=== PATIENT | male | born 1990 | race Caucasian/White ===

== ENCOUNTER 2018-08-09 15:54 | Emergency (ER) | payer SELFPAY ==
[~2018-08-09] VITALS: Ht 182.9 cm; Wt 95.0 kg
[2018-08-09 15:56] VITALS: BP 132/85
--- NOTE | 2018-08-09 16:10 | NUR ---
PERFORMED EKG AND GAVE IT TO ROBERT DYSON. PT AMBULATED TO LOBBY AT THIS TIME. VSS.
--- NOTE | 2018-08-09 16:21 | NUR ---
PT TAKEN TO X-RAY AT THIS TIME.
--- NOTE | 2018-08-09 16:30 | NUR ---
PT AMBULATED TO BED 6
--- NOTE | 2018-08-09 16:33 | NUR ---
BIB SELF. AAO X4 C/O COLD X1 WEEK. PT STATES HAVING SOB STARTING YESTERDAY ALONG WITH SHARP MIDSTERNAL CP AT 10/10 AT 0300 THISMORNING. PT REPORTS SOB AT THIS TIME, RR SYMMETRICAL, NON-LABORED, AND BREATH SOUNDS CLEAR. O2 SATURATION AT 96% ROOM AIR. PT DENIES DIZZINESS. PERRLA BRISK 3 MM. FULL CLEAR SPEECH. FACIAL SYMMETRY. EQUAL EBONY STRENGTH TO UPPER AND LOWER EXTREMITIES. STEADY GAIT. PT PLACED ON FULL BRANCH LOGISTICS SUPERVISOR. HOB UP. BED SIDE RAILS UP X1.
[2018-08-09 16:44] LABS: BASOPHILS # (AUTO) 0.1 K/uL (0.00-0.22); BASOPHILS % (AUTO) 0.8 % (0.0-2.0); EOSINOPHILS # (AUTO) 0.3 K/uL (0-0.4); EOSINOPHILS % (AUTO) 3.5 % (0.0-4.0); LYMPHOCYTES # (AUTO) 1.9 K/uL (2.0-11.5); LYMPHOCYTES % (AUTO) 22.5 % (20.5-51.1); MEAN CORPUSCULAR HEMOGLOBIN 30 pg (27-31); MEAN CORPUSCULAR HGB CONC 35 g/dL (33-37); MEAN CORPUSCULAR VOLUME 87.1 fL (80-94); MONOCYTES # (AUTO) 0.6 K/uL (0.8-1.0); MONOCYTES % (AUTO) 6.8 % (1.7-9.3); NEUTROPHILS # (AUTO) 5.7 K/uL (1.8-7.7); NEUTROPHILS % (AUTO) 66.4 % (42.2-75.2); PLATELET COUNT (AUTO) 252 K/uL (140-450); RED BLOOD CELL COUNT(AUTO) 5.29 MIL/uL (4.20-6.10); RED CELL DISTRIBUTION WIDTH 13.3 % (11.6-13.7); WHITE BLOOD COUNT (AUTO) 8.7 K/uL (4.8-10.8)
[2018-08-09 16:53] LABS: ANION GAP 13.3 (8-16); CARBON DIOXIDE 25.4 mmol/L (21-32); CREATININE 1.1 mg/dL (0.7-1.3); POTASSIUM 3.7 mmol/L (3.5-5.1)
[2018-08-09 16:58] LABS: ALBUMIN 3.8 g/dL (3.4-5.0); TOTAL BILIRUBIN 1.8 mg/dL (0.0-1.0)
[2018-08-09 17:54] VITALS: BP 138/82
--- NOTE | 2018-08-09 17:54 | NUR ---
Patient discharged with v/s stable. Written and verbal after care instructions given and explained. Patient alert, oriented and verbalized understanding of instructions. Ambulatory with steady gait. All questions addressed prior to discharge. ID band removed. Patient advised to follow up with PMD. Rx of IBUPROFEN 600MG AND NORCO 5MG-325MG given. Patient educated on indication of medication including possible reaction and side effects. Opportunity to ask questions provided and answered.
== END 2018-08-09 17:54 | disposition home or self-care (01) ==
LOC: MED 15:54
DX: I20.9 Angina pectoris, unspecified (principal); F17.200 Nicotine dependence, unspecified, uncomplicated
CPT/HCPCS: 36415; 71046; 80053; 84484; 85025; 93005; 99284

== ENCOUNTER 2019-12-31 01:20 | Emergency (ER) | payer OTHER ==
[~2019-12-31] VITALS: Ht 185.4 cm; Wt 116.1 kg
[2019-12-31 01:29] VITALS: BP 123/66
--- NOTE | 2019-12-31 01:33 | NUR ---
PT TAKEN TO BED 7
--- NOTE | 2019-12-31 01:35 | NUR ---
29 YO MALE BIB SELF FOR RLQ PAIN; DULLNESS/ACHINESS 11/23. PT DENIES N/V/D, FEVER AND CHILLS. DENIES CP/SOB. ACTIVE BS X4 QUADRANTS, LAST BM YESTERDAY. LUNGS CLEAR EVEN UNLABORED. PT VOIDING CLEAR YELLOW URINE, DENIES DYSURIA, FREQUENCY URGENCY. SKIN INTACT. GURNEY LOCKED IN LOWEST POSITION. HX: GALLSTONES RX: TYLENOL X 1 HOUR AGO AX: DESMONDA
--- NOTE | 2019-12-31 02:04 | NUR ---
Dr. Mead examining patient.
[2019-12-31] MEDS ORDERED: HYDROcodone/APAP 5/325 MG 1 TAB TAB PO ONE (02:10)
[2019-12-31] MEDS ORDERED: KETOROLAC 30 MG/ML VIAL IM ONE (02:10)
[2019-12-31] MEDS ORDERED: ONDANSETRON 4 MG ODT PO ONE (02:10)
--- NOTE | 2019-12-31 02:16 | NUR ---
LAB AT BEDSIDE.
[2019-12-31 02:24] LABS: BASOPHILS # (AUTO) 0.1 K/uL (0.00-0.22); BASOPHILS % (AUTO) 0.6 % (0.0-2.0); EOSINOPHILS % (AUTO) 0.4 % (0.0-4.0); HEMATOCRIT 43.7 % (36-52); HEMOGLOBIN 14.9 g/dL (12.0-18.0); LYMPHOCYTES # (AUTO) 1.2 K/uL (2.0-11.5); LYMPHOCYTES % (AUTO) 11.3 % (20.5-51.1); MEAN CORPUSCULAR HEMOGLOBIN 31 pg (27-31); MEAN CORPUSCULAR HGB CONC 34 g/dL (33-37); MEAN CORPUSCULAR VOLUME 91.3 fL (80-94); MONOCYTES # (AUTO) 0.4 K/uL (0.8-1.0); MONOCYTES % (AUTO) 4.1 % (1.7-9.3); NEUTROPHILS # (AUTO) 8.5 K/uL (1.8-7.7); NEUTROPHILS % (AUTO) 83.6 % (42.2-75.2); PLATELET COUNT (AUTO) 261 K/uL (140-450); RED BLOOD CELL COUNT(AUTO) 4.78 MIL/uL (4.20-6.10); RED CELL DISTRIBUTION WIDTH 13.8 % (11.6-13.7); WHITE BLOOD COUNT (AUTO) 10.2 K/uL (4.8-10.8)
[2019-12-31 02:41] LABS: ALBUMIN 3.7 g/dL (3.4-5.0); CARBON DIOXIDE 27.4 mmol/L (21-32); CREATININE 1.3 mg/dL (0.6-1.3); POTASSIUM 3.4 mmol/L (3.5-5.1); TOTAL BILIRUBIN 0.9 mg/dL (0.0-1.0)
[2019-12-31 03:32] VITALS: BP 121/68
== END 2019-12-31 03:32 | disposition home or self-care (01) ==
LOC: MED 01:20
DX: K80.80 Other cholelithiasis without obstruction (principal)
CPT/HCPCS: 36415; 80053; 83690; 85025; 93005; 96372; 99284; J1885; Q0162